=== PATIENT | female | born 1985 | race Caucasian/White ===

== ENCOUNTER 2017-01-27 17:28 | Emergency (ER) | payer OTHER ==
[2017-01-27 18:03] LABS: BILIRUBIN NEGATIVE (NEGATIVE); BLOOD TRACE-INTACT Ery/uL (NEGATIVE); CLARITY CLEAR (CLEAR); COLOR STRAW (YELLOW); GLUCOSE (U) NORMAL (NORMAL); KETONE (U) NEGATIVE (NEGATIVE); LEUKOCYTES NEGATIVE Leu/uL (NEGATIVE); NITRITE NEGATIVE (NEGATIVE); PROTEIN NEGATIVE (NEGATIVE); UROBILINOGEN 0.2 mg/dL (0.2-1.0); pH 6.5 (5.0-9.0)
[2017-01-27 18:13] LABS: BACTERIA TRACE; SQUAMOUS EPITHELIAL CELLS RARE; URINARY RBC RARE; URINARY WBC RARE
== END 2017-01-27 20:10 | disposition home or self-care (01) ==
LOC: FER 17:28
PROVIDERS: Internal Medicine
DX: M54.16 Radiculopathy, lumbar region (principal)
CPT/HCPCS: 81001; J1100; J1885

== ENCOUNTER 2022-03-27 11:17 | Emergency (ER) | payer OTHER ==
[2022-03-27 11:38] LABS: BASOPHIL 0.5 % (0-2); EOSINOPHIL 0 % (0-5); HCT 40.4 % (37.0-47.0); HGB 13.4 g/dl (12.5-16.0); LYMPHOCYTE 16.3 % (15-48); MCH 26.7 pg (25.0-31.0); MCHC 33.2 g/dL (32.0-36.0); MCV 80.6 fL (78.0-100.0); MONOCYTE 8.3 % (0-12); MPV 9.7 fL (6.0-9.5); NEUTROPHIL 74.7 % (41-80); NRBC 0; PLT 335 K/uL (150-400); RBC 5.01 M/uL (4.20-5.40); WBC 5.9 K/uL (4.0-10.5)
[2022-03-27 11:50] LABS: INR 1.25 (0.9-1.2); PTT 22.6 SECONDS (24.4-34.7)
[2022-03-27 11:56] LABS: BILIRUBIN 1+ mg/dL (NEGATIVE); BLOOD 3+ Ery/uL (NEGATIVE); CLARITY HAZY (CLEAR); COLOR YELLOW (YELLOW); GLUCOSE (U) NORMAL (NORMAL); LEUKOCYTES NEGATIVE Leu/uL (NEGATIVE); NITRITE NEGATIVE (NEGATIVE); PROTEIN 2+ mg/dL (NEGATIVE); SPECIFIC GRAVITY >=1.030 (1.001-1.030); UROBILINOGEN 0.2 mg/dL (0.2-1.0)
[2022-03-27 12:01] LABS: IRON 32 ug/dL (50-170)
[2022-03-27 12:01] LABS: AMPHETAMINES NEGATIVE (NEGATIVE); BARBITURATES NEGATIVE (NEGATIVE); ECSTASY (MDMA) NEGATIVE (NEGATIVE); MARIJUANA (THC) NEGATIVE (NEGATIVE); METHADONE NEGATIVE (NEGATIVE); OPIATES NEGATIVE (NEGATIVE); OXYCODONE NEGATIVE (NEGATIVE)
[2022-03-27 12:02] LABS: SALICYLATE <0.2 mg/dL (2.8-20.0)
[2022-03-27 12:03] LABS: ACETAMINOPHEN (TYLENOL) 117.7 ug/mL (10.0-30.0); ALBUMIN 4.2 g/dL (3.4-5.0); ALKALINE PHOSHATASE 70 U/L (46-116); ALT 358 U/L (14-59); AST 366 U/L (15-37); BILIRUBIN - TOTAL 0.9 mg/dL (0.2-1.0); BUN 6 mg/dL (7-18); BUN/CREAT RATIO (CALC) 9.5 RATIO; CHLORIDE 99 mmol/L (98-107); CO2 (BICARBONATE) 21 mmol/L (21-32); CREATININE 0.63 mg/dL (0.51-0.95); GLOBULIN (CALCULATION) 3.1 g/dL; GLUCOSE 152 mg/dL (74-106); LIPASE 207 U/L (73-393); MAGNESIUM 1.7 mg/dL (1.8-2.4); POTASSIUM 2.9 mmol/L (3.5-5.1); TOTAL PROTEIN 7.3 g/dL (6.4-8.2)
[2022-03-27 12:05] LABS: BACTERIA TRACE; MUCOUS TRACE
[2022-03-27 12:09] LABS: LACTIC ACID 2.6 mmol/L (0.4-1.9)
[2022-03-27 15:46] LABS: INR 1.62 (0.9-1.2); PROTHROMBIN TIME 18.5 SECONDS (11.8-13.4)
[2022-03-27 15:54] LABS: ACETAMINOPHEN (TYLENOL) 79.9 ug/mL (10.0-30.0); ALBUMIN 4.1 g/dL (3.4-5.0); BILIRUBIN - TOTAL 1.1 mg/dL (0.2-1.0); BUN/CREAT RATIO (CALC) 11.9 RATIO; CREATININE 0.59 mg/dL (0.51-0.95); POTASSIUM 3.9 mmol/L (3.5-5.1); TOTAL PROTEIN 7.1 g/dL (6.4-8.2)
[2022-03-28 04:40] LABS: HCT 40.2 % (37.0-47.0); HGB 13.3 g/dl (12.5-16.0); MCH 26.5 pg (25.0-31.0); MCHC 33.1 g/dL (32.0-36.0); MCV 80.2 fL (78.0-100.0); MPV 9.7 fL (6.0-9.5); RBC 5.01 M/uL (4.20-5.40)
[2022-03-28 04:42] LABS: WBC 12.6 K/uL (4.0-10.5)
[2022-03-28 04:50] LABS: INR 1.71 (0.9-1.2); PROTHROMBIN TIME 19.3 SECONDS (11.8-13.4)
[2022-03-28 04:57] LABS: ALBUMIN 3.8 g/dL (3.4-5.0); BILIRUBIN - TOTAL 1.5 mg/dL (0.2-1.0); BUN/CREAT RATIO (CALC) 9.4 RATIO; CREATININE 0.64 mg/dL (0.51-0.95); GLOBULIN (CALCULATION) 3.5 g/dL; POTASSIUM 3.2 mmol/L (3.5-5.1); TOTAL PROTEIN 7.3 g/dL (6.4-8.2)
== END 2022-03-28 15:40 | disposition other institution (70) ==
LOC: FER 11:17
PROVIDERS: Emergency Medicine
DX: T39.1X1A Poisoning by 4-Aminophenol derivatives, accidental (unintentional), initial encounter (principal); K71.9 Toxic liver disease, unspecified; Z28.310 Unvaccinated for COVID-19
CPT/HCPCS: 36415; 36600; 80053; 80305; 81001; 82140; 82803; 83540; 83605; 83690; 83735; 84100; 84443; 84703; 85025; 85610; 85730; 93005; G0480; J0132; J7030; J7060; J7070